=== PATIENT | female | born 1940 | race Caucasian/White ===

== ENCOUNTER → 2017-12-08 | Outpatient (CLI) | payer OTHER ==
[~2017-12-08] MED LIST: ACET325 PO; ACYC800 PO; ALBU90OI61 INH; ALTACE; AMIT25 PO; AMIT50 PO; AMOCLA875 PO; ANORO ELLIPTA1 EACH INH; ASPI325 PO; ASPIRIN; Amlodipine Besyl5 MG PO; CHOL10002 PO; CITA20 PO; CLOP75 PO; Diclofenac Sod2.5 ML; ERYT.5TO BOTHEYES; FLUARIX IM; FLUC150A PO; FURO40 PO; Ferrous Sulfat325 M2 PO; GABA300 PO; HYDACE5 PO; ISOMON30 PO; Isosorbide Mono30 MG PO; LISI5 PO; Lisinopril2.5 MG; METF500 PO; METF850 PO; METO100ER PO; METO25ER PO; METO50 PO; METO50ER; METO50ER PO; NIAC250ER PO; NITR.4SL; NITR.4SL SL; NYST100P TOP; NYSTATIN1 EACH TOP; NYSTRITC TOP; Nystop60 GM TOP; OXYGEN; PANT40 PO; POTA10T PO; PRED1SU BOTHEYES; PREDNISONE PO; Pantoprazole So40 MG PO; Percocet 5-3251 EACH PO; Sulfamethoxazo1 EAC4 PO; TOPROL XL; VITAMIN D PO
[2017-12-09 14:49] LABS: Stool Occult Bld Immuno 1 Negative (NEGATIVE); Stool Occult Bld Immuno 2 Negative (NEGATIVE)
== END ==
LOC: LAB EV 08:00
PROVIDERS: Internal Medicine Gastroenterology
DX: Z80.0 Family history of malignant neoplasm of digestive organs (principal); Z12.11 Encounter for screening for malignant neoplasm of colon
CPT/HCPCS: G0328

== ENCOUNTER 2018-05-14 16:39 | Inpatient (IN) | payer OTHER ==
[~2018-05-14] VITALS: Ht 165.1 cm; Wt 148.8 kg
[~2018-05-14 16:39] MED LIST changes: +CYAN500 PO; +VITAMIN B6 PO
[2018-05-14 17:31] LABS: Hematocrit 38.3 % (33.0-51.0); Hemoglobin 11.9 g/dL (11.5-16.0); Mean Corpuscular HGB 28.9 pg (26.0-34.0); Mean Corpuscular HGB Conc 31.1 g/dL (31.5-36.5); Mean Corpuscular Volume 93 fL (80-100); Platelet Count 239 K/mm3 (150-400); RDW Coefficient Variation 13.9 % (11.7-14.2); RDW Standard Deviation 47.2 fL (35.1-46.3); Red Blood Cell Count 4.12 M/mm3 (3.80-5.20)
[2018-05-14 17:54] LABS: Troponin I 0.058 ng/mL (0.000-0.040)
[2018-05-14 17:59] LABS: Alanine Aminotransfer (ALT/SGP 27 U/L (12-78); Albumin, Blood 3.2 g/dL (3.4-5.0); Albumin/Globulin Ratio 0.7 (0.8-1.8); Alk Phos 103 U/L (50-136); Anion Gap 11 mmol/L (6-16); Aspartate Aminotrans (AST/SGOT 38 U/L (12-37); Bilirubin, Total 0.6 mg/dL (0.1-1.0); Blood Urea Nitrogen 10 mg/dL (8-24); Bun/Creatinine Ratio 13.2 (12.0-20.0); CO2, Blood 24 mmol/L (21-32); Calcium, Blood 8.8 mg/dL (8.5-10.1); Chloride, Blood 101 mmol/L (98-108); Creatinine, Blood 0.76 mg/dL (0.40-1.00); Globulin, Blood 4.5 g/dL (2.2-4.0); Glomerular Filtration Rate >60 (60-); Glucose, Blood 165 mg/dL (70-99); Potassium, Blood 4.4 mmol/L (3.5-5.5); Sodium, Blood 136 mmol/L (136-145); Total Protein, Blood 7.7 g/dL (6.4-8.2)
[2018-05-14 18:02] LABS: Source, Urine Catheter
[2018-05-14 18:11] LABS: Appearance, Urine Clear (Clear); Bilirubin, Urine Neg (Neg); Blood, Urine Neg (Neg); Color, Urine Yellow (P-Yellow); Glucose Qualitative, Urine Neg (Neg); Ketones, Urine 1+ (Neg); Leukocyte Esterase, Urine Neg (Neg); Nitrite, Urine Neg (Neg); Protein, Urine Neg (Neg); Specific Gravity, Urine 1.005 (1.003-1.022); Urobilinogen, Urine NORM (Normal)
[2018-05-14 19:07] LABS: BAND PERCENT MAN 5 % (0-8); BASOPHILS ABSOLUTE MAN 0.14 K/mm3 (0.00-0.23); BASOPHILS PERCENT MAN 1 % (0-2); EOSINOPHILS PERCENT MAN 0 % (0-6); LYMPHOCYTES ABSOLUTE MAN 0.28 K/mm3 (0.84-5.20); LYMPHOCYTES PERCENT MAN 2 % (21-46); MONOCYTES ABSOLUTE MAN 0.42 K/mm3 (0.16-1.47); MONOCYTES PERCENT MAN 3 % (4-13); NEUTROPHILS ABSOLUTE MAN 13.34 K/mm3 (1.96-9.15); SEG NEUTROPHILS PERCENT MAN 89 % (41-73); TOTAL CELLS COUNTED 100
[2018-05-14 23:54] LABS: International Normalized Ratio 1.01; Prothrombin Time Results 10.4 Sec (9.7-11.5)
[2018-05-15 04:00] LABS: Hematocrit 31.4 % (33.0-51.0); Hemoglobin 9.8 g/dL (11.5-16.0); Mean Corpuscular HGB Conc 31.2 g/dL (31.5-36.5); Mean Corpuscular Volume 93 fL (80-100); Mean Platelet Volume 9.7 fL (9.1-12.4); Platelet Count 200 K/mm3 (150-400); RDW Coefficient Variation 14.2 % (11.7-14.2); RDW Standard Deviation 47.8 fL (35.1-46.3); Red Blood Cell Count 3.38 M/mm3 (3.80-5.20); White Blood Cell Count 13.02 K/mm3 (4.00-11.30)
[2018-05-15 04:17] LABS: Anion Gap 9 mmol/L (6-16); Blood Urea Nitrogen 11 mg/dL (8-24); Bun/Creatinine Ratio 16.1 (12.0-20.0); CO2, Blood 26 mmol/L (21-32); Calcium, Blood 7.3 mg/dL (8.5-10.1); Chloride, Blood 104 mmol/L (98-108); Creatinine, Blood 0.68 mg/dL (0.40-1.00); Glomerular Filtration Rate >60 (60-); Glucose, Blood 111 mg/dL (70-99); Potassium, Blood 3.6 mmol/L (3.5-5.5); Sodium, Blood 139 mmol/L (136-145)
[2018-05-16 04:51] LABS: BASOPHILS ABSOLUTE AUTO 0.03 K/mm3 (0.00-0.23); BASOPHILS PERCENT AUTO 0 % (0-2); EOSINOPHILS ABSOLUTE AUTO 0.19 K/mm3 (0.00-0.68); EOSINOPHILS PERCENT AUTO 3 % (0-6); Hematocrit 33.4 % (33.0-51.0); Hemoglobin 10.5 g/dL (11.5-16.0); IMMATURE GRAN ABSOLUTE AUTO 0.03 K/mm3 (0.00-0.10); IMMATURE GRAN PERCENT AUTO 0 % (0-1); LYMPHOCYTES ABSOLUTE AUTO 0.96 K/mm3 (0.84-5.20); LYMPHOCYTES PERCENT AUTO 14 % (21-46); MONOCYTES PERCENT AUTO 7 % (4-13); Mean Corpuscular HGB 29.3 pg (26.0-34.0); Mean Corpuscular HGB Conc 31.4 g/dL (31.5-36.5); Mean Corpuscular Volume 93 fL (80-100); Mean Platelet Volume 9.6 fL (9.1-12.4); NEUTROPHILS PERCENT AUTO 76 % (41-73); Platelet Count 189 K/mm3 (150-400); RDW Coefficient Variation 14.3 % (11.7-14.2); RDW Standard Deviation 48.4 fL (35.1-46.3); Red Blood Cell Count 3.58 M/mm3 (3.80-5.20); White Blood Cell Count 7.11 K/mm3 (4.00-11.30)
[2018-05-17] MEDS ORDERED: Norco 5-325 Ta1 EACH PO (14:54)
[2018-05-17] MEDS ORDERED: ALBU90OI INH (14:55)
[2018-05-17] MEDS ORDERED: LEVFLO500 PO (14:57)
== END 2018-05-17 16:46 | disposition home or self-care (01) | DRG 871 ==
LOC: ER 16:39 → PCU 19:13 → MEDS 21:05 → ENPENDDIS 05-17 11:00 → MEDS 05-17 16:46
PROVIDERS: Emergency Medicine; Internal Medicine; Nurse Practitioner Acute Care
DX: A41.9 Sepsis, unspecified organism (principal); J18.9 Pneumonia, unspecified organism; J96.01 Acute respiratory failure with hypoxia; I50.30 Unspecified diastolic (congestive) heart failure; Z68.44 Body mass index [BMI] 60.0-69.9, adult; R65.20 Severe sepsis without septic shock; I11.0 Hypertensive heart disease with heart failure; E66.01 Morbid (severe) obesity due to excess calories; I25.10 Atherosclerotic heart disease of native coronary artery without angina pectoris; K21.9 Gastro-esophageal reflux disease without esophagitis; G47.33 Obstructive sleep apnea (adult) (pediatric); E78.5 Hyperlipidemia, unspecified; G60.9 Hereditary and idiopathic neuropathy, unspecified; M19.90 Unspecified osteoarthritis, unspecified site; I16.0 Hypertensive urgency; Z74.01 Bed confinement status; Z99.3 Dependence on wheelchair; Z88.6 Allergy status to analgesic agent; Z88.8 Allergy status to other drugs, medicaments and biological substances; Z91.018 Allergy to other foods; Z79.02 Long term (current) use of antithrombotics/antiplatelets; Z79.82 Long term (current) use of aspirin; Z79.899 Other long term (current) drug therapy
CPT/HCPCS: 36415; 51702; 71045; 80048; 80053; 81003; 83605; 83880; 84484; 85025; 85027; 85610; 87449; 93005; 93010; 94644; 94667; 94760; 94761; 96365; 96366; 96367; 96368; 97161; 97166; 97530; 99285-25; G8978; G8979; G8987; G8988; J0696; J1650; J1956; J2405; J2543; J3370; J7030; J7050; J7120

== ENCOUNTER 2020-03-16 14:07 | Emergency (ER) | payer OTHER ==
[~2020-03-16] VITALS: Ht 165.1 cm; Wt 127.0 kg
[~2020-03-16 14:07] MED LIST changes: +ALBU90OI INH; +LEVFLO500 PO; +Norco 5-325 Ta1 EACH PO; +Prednisone20 MG PO
[2020-03-16 14:28] LABS: BASOPHILS ABSOLUTE AUTO 0.04 K/mm3 (0.00-0.23); BASOPHILS PERCENT AUTO 1 % (0-2); EOSINOPHILS ABSOLUTE AUTO 0.27 K/mm3 (0.00-0.68); EOSINOPHILS PERCENT AUTO 6 % (0-6); Hematocrit 38.3 % (33.0-51.0); Hemoglobin 11.1 g/dL (11.5-16.0); IMMATURE GRAN ABSOLUTE AUTO 0.01 K/mm3 (0.00-0.10); IMMATURE GRAN PERCENT AUTO 0 % (0-1); LYMPHOCYTES ABSOLUTE AUTO 0.98 K/mm3 (0.84-5.20); LYMPHOCYTES PERCENT AUTO 21 % (21-46); MONOCYTES ABSOLUTE AUTO 0.44 K/mm3 (0.16-1.47); MONOCYTES PERCENT AUTO 9 % (4-13); Mean Corpuscular HGB 26.1 pg (26.0-34.0); Mean Corpuscular Volume 90 fL (80-100); Mean Platelet Volume 9.7 fL (9.1-12.4); NEUTROPHILS PERCENT AUTO 63 % (41-73); Platelet Count 250 K/mm3 (150-400); RDW Coefficient Variation 15.7 % (11.7-14.2); RDW Standard Deviation 51.8 fL (35.1-46.3); Red Blood Cell Count 4.25 M/mm3 (3.80-5.20); White Blood Cell Count 4.74 K/mm3 (4.00-11.30)
[2020-03-16 15:07] LABS: Chloride, Blood 101 mmol/L (98-108); Potassium, Blood 4.2 mmol/L (3.5-5.5); Sodium, Blood 136 mmol/L (136-145)
[2020-03-16 15:13] LABS: Alanine Aminotransfer (ALT/SGP 19 U/L (12-78); Albumin/Globulin Ratio 0.7 (0.8-1.8); Alk Phos 97 U/L (50-136); Anion Gap 8 mmol/L (6-16); Aspartate Aminotrans (AST/SGOT 20 U/L (12-37); Bilirubin, Total 0.3 mg/dL (0.1-1.0); Blood Urea Nitrogen 9 mg/dL (8-24); Bun/Creatinine Ratio 14.2 (12.0-20.0); CO2, Blood 27 mmol/L (21-32); Calcium, Blood 8.5 mg/dL (8.5-10.1); Creatinine, Blood 0.63 mg/dL (0.40-1.00); Globulin, Blood 4.3 g/dL (2.2-4.0); Glomerular Filtration Rate >60 (60-); Glucose, Blood 103 mg/dL (70-99); Total Protein, Blood 7.3 g/dL (6.4-8.2); Troponin I <0.015 ng/mL (0.000-0.040)
== END 2020-03-16 15:50 | disposition home or self-care (01) ==
LOC: ER 14:07
PROVIDERS: Emergency Medicine
DX: R07.9 Chest pain, unspecified (principal); F32.9 Major depressive disorder, single episode, unspecified; E78.5 Hyperlipidemia, unspecified; Z79.82 Long term (current) use of aspirin; Z79.899 Other long term (current) drug therapy; Z91.018 Allergy to other foods; Z88.8 Allergy status to other drugs, medicaments and biological substances
CPT/HCPCS: 36415; 71045; 80053; 84484; 85025; 93005; 93010; 99284-25

== ENCOUNTER 2020-10-19 13:16 | Emergency (ER) | payer OTHER, SELFPAY ==
[~2020-10-19] VITALS: Ht 162.6 cm; Wt 133.8 kg
[~2020-10-19 13:16] MED LIST changes: +ASPI325EC PO
[2020-10-19 14:55] LABS: BASOPHILS ABSOLUTE AUTO 0.05 K/mm3 (0.00-0.23); BASOPHILS PERCENT AUTO 1 % (0-2); EOSINOPHILS ABSOLUTE AUTO 0.29 K/mm3 (0.00-0.68); EOSINOPHILS PERCENT AUTO 6 % (0-6); Hematocrit 39.5 % (33.0-51.0); Hemoglobin 11.8 g/dL (11.5-16.0); IMMATURE GRAN ABSOLUTE AUTO 0.02 K/mm3 (0.00-0.10); IMMATURE GRAN PERCENT AUTO 0 % (0-1); LYMPHOCYTES ABSOLUTE AUTO 0.88 K/mm3 (0.84-5.20); LYMPHOCYTES PERCENT AUTO 19 % (21-46); MONOCYTES ABSOLUTE AUTO 0.43 K/mm3 (0.16-1.47); MONOCYTES PERCENT AUTO 9 % (4-13); Mean Corpuscular HGB 28.1 pg (26.0-34.0); Mean Corpuscular HGB Conc 29.9 g/dL (31.5-36.5); Mean Corpuscular Volume 94 fL (80-100); Mean Platelet Volume 9.8 fL (9.1-12.4); NEUTROPHILS ABSOLUTE AUTO 3.06 K/mm3 (1.96-9.15); NEUTROPHILS PERCENT AUTO 65 % (41-73); Platelet Count 214 K/mm3 (150-400); RDW Coefficient Variation 15.6 % (11.7-14.2); White Blood Cell Count 4.73 K/mm3 (4.00-11.30)
[2020-10-19 15:08] LABS: Alanine Aminotransfer (ALT/SGP 28 U/L (12-78); Albumin, Blood 2.6 g/dL (3.4-5.0); Albumin/Globulin Ratio 0.6 (0.8-1.8); Alk Phos 105 U/L (50-136); Anion Gap 5 mmol/L (6-16); Aspartate Aminotrans (AST/SGOT 37 U/L (12-37); Bilirubin, Total 0.6 mg/dL (0.1-1.0); Blood Urea Nitrogen 10 mg/dL (8-24); Bun/Creatinine Ratio 15.9 (12.0-20.0); CO2, Blood 28 mmol/L (21-32); Calcium, Blood 8.5 mg/dL (8.5-10.1); Chloride, Blood 103 mmol/L (98-108); Creatinine, Blood 0.63 mg/dL (0.40-1.00); Globulin, Blood 4.2 g/dL (2.2-4.0); Glomerular Filtration Rate >60 (60-); Glucose, Blood 132 mg/dL (70-99); Potassium, Blood 4.3 mmol/L (3.5-5.5); Sodium, Blood 136 mmol/L (136-145); Total Protein, Blood 6.8 g/dL (6.4-8.2); Troponin I <0.015 ng/mL (0.000-0.040)
== END 2020-10-19 17:59 | disposition home or self-care (01) ==
LOC: ER 13:16
PROVIDERS: Physician Assistant
DX: R07.9 Chest pain, unspecified (principal); K46.9 Unspecified abdominal hernia without obstruction or gangrene; E78.5 Hyperlipidemia, unspecified; Z88.8 Allergy status to other drugs, medicaments and biological substances; Z88.6 Allergy status to analgesic agent; Z91.02 Food additives allergy status; Z79.02 Long term (current) use of antithrombotics/antiplatelets; Z79.899 Other long term (current) drug therapy; Z79.82 Long term (current) use of aspirin; Z95.5 Presence of coronary angioplasty implant and graft
CPT/HCPCS: 36415; 71045; 80053; 83880; 84484; 85025; 93005; 93010; 99284-25

== ENCOUNTER 2020-11-30 05:07 | Emergency (ER) | payer OTHER ==
[~2020-11-30] VITALS: Ht 165.1 cm; Wt 122.5 kg
[2020-11-30] MEDS ORDERED: HYDR1TAB94 PO (06:30)
== END 2020-11-30 07:31 | disposition home or self-care (01) ==
LOC: ER 05:07
DX: M17.11 Unilateral primary osteoarthritis, right knee (principal); E66.01 Morbid (severe) obesity due to excess calories; E78.5 Hyperlipidemia, unspecified; I25.10 Atherosclerotic heart disease of native coronary artery without angina pectoris; I10 Essential (primary) hypertension; K21.9 Gastro-esophageal reflux disease without esophagitis; Z68.41 Body mass index [BMI] 40.0-44.9, adult; Z88.6 Allergy status to analgesic agent; Z88.8 Allergy status to other drugs, medicaments and biological substances; Z79.82 Long term (current) use of aspirin; Z79.899 Other long term (current) drug therapy
CPT/HCPCS: 73562-RT; 99283-25; A9270

== ENCOUNTER 2020-12-18 17:31 | Inpatient (IN) | payer OTHER ==
[~2020-12-18] VITALS: Ht 165.1 cm; Wt 113.4 kg
[~2020-12-18 17:31] MED LIST changes: +HYDR1TAB94 PO
[2020-12-18 18:19] LABS: BASOPHILS ABSOLUTE AUTO 0.06 K/mm3 (0.00-0.23); BASOPHILS PERCENT AUTO 1 % (0-2); EOSINOPHILS PERCENT AUTO 2 % (0-6); Hematocrit 38.8 % (33.0-51.0); Hemoglobin 12.1 g/dL (11.5-16.0); IMMATURE GRAN ABSOLUTE AUTO 0.06 K/mm3 (0.00-0.10); IMMATURE GRAN PERCENT AUTO 1 % (0-1); LYMPHOCYTES ABSOLUTE AUTO 0.99 K/mm3 (0.84-5.20); LYMPHOCYTES PERCENT AUTO 10 % (21-46); MONOCYTES ABSOLUTE AUTO 0.61 K/mm3 (0.16-1.47); MONOCYTES PERCENT AUTO 6 % (4-13); Mean Corpuscular HGB 27.9 pg (26.0-34.0); Mean Corpuscular HGB Conc 31.2 g/dL (31.5-36.5); Mean Corpuscular Volume 89 fL (80-100); Mean Platelet Volume 9.7 fL (9.1-12.4); NEUTROPHILS ABSOLUTE AUTO 7.58 K/mm3 (1.96-9.15); NEUTROPHILS PERCENT AUTO 80 % (41-73); Platelet Count 278 K/mm3 (150-400); RDW Coefficient Variation 13.9 % (11.7-14.2); RDW Standard Deviation 45.2 fL (35.1-46.3); Red Blood Cell Count 4.34 M/mm3 (3.80-5.20)
[2020-12-18 18:40] LABS: Alanine Aminotransfer (ALT/SGP 14 U/L (12-78); Albumin, Blood 2.9 g/dL (3.4-5.0); Albumin/Globulin Ratio 0.6 (0.8-1.8); Alk Phos 97 U/L (50-136); Anion Gap 7 mmol/L (6-16); Aspartate Aminotrans (AST/SGOT 17 U/L (12-37); Bilirubin, Total 0.7 mg/dL (0.1-1.0); Blood Urea Nitrogen 9 mg/dL (8-24); Bun/Creatinine Ratio 14.1 (12.0-20.0); CO2, Blood 27 mmol/L (21-32); Calcium, Blood 8.8 mg/dL (8.5-10.1); Chloride, Blood 99 mmol/L (98-108); Creatinine, Blood 0.64 mg/dL (0.40-1.00); Globulin, Blood 4.7 g/dL (2.2-4.0); Glomerular Filtration Rate >60 (60-); Glucose, Blood 151 mg/dL (70-99); Potassium, Blood 3.9 mmol/L (3.5-5.5); Sodium, Blood 133 mmol/L (136-145); Total Protein, Blood 7.6 g/dL (6.4-8.2)
[2020-12-18] MEDS ORDERED: AMIT50 PO (19:51)
[2020-12-18] MEDS ORDERED: SYNTHROID PO (19:52)
--- NOTE | 2020-12-18 22:41 | NUR ---
ADMIT NOTE HANDOFF REPORT RECEIVED FROM ER NURSE KIM. PT TRANSPORTED TO FLOOR VIA GURNEY. PT ORIENTED TO UNIT. CALL BUTTON WITHIN REACH. PERSONAL POSSESSIONS WITH PT.
--- NOTE | 2020-12-19 04:21 | NUR ---
SHIFT SUMMARY ADMITTED FOR FACIAL CELLULITIS (LEFT SIDE) THIS SHIFT. IV ANTIBIOTICS ARE SCHEDULED. SHE HAS MANY CAVITIES WHICH COULD BE THE CAUSATIVE FACTOR. CHEMBG'S ARE ACHS, BUT SHE DENIES BEING DIABETIC. HEPARIN FOR DVT PREVENTION. SHE IS A 1 ASSIST TO [facility] [place]UE TO LEG WEAKNESS, SHE IS IN A WHEELCHAIR AT HOME. HER DAUGHTERS COME 2 DAYS A WEEK TO HELP THE PT AND HER (HE HAS CARDIAC PROBLEMS). PLAN IS FOR EVENTUAL SWITCH TO PO ANTIBIOTICS AND DC HOME
[2020-12-19 05:05] LABS: BASOPHILS ABSOLUTE AUTO 0.04 K/mm3 (0.00-0.23); BASOPHILS PERCENT AUTO 1 % (0-2); EOSINOPHILS ABSOLUTE AUTO 0.23 K/mm3 (0.00-0.68); EOSINOPHILS PERCENT AUTO 3 % (0-6); Hematocrit 34.4 % (33.0-51.0); Hemoglobin 10.6 g/dL (11.5-16.0); IMMATURE GRAN ABSOLUTE AUTO 0.03 K/mm3 (0.00-0.10); IMMATURE GRAN PERCENT AUTO 0 % (0-1); LYMPHOCYTES ABSOLUTE AUTO 0.62 K/mm3 (0.84-5.20); LYMPHOCYTES PERCENT AUTO 9 % (21-46); MONOCYTES PERCENT AUTO 10 % (4-13); Mean Corpuscular HGB Conc 30.8 g/dL (31.5-36.5); Mean Corpuscular Volume 91 fL (80-100); Mean Platelet Volume 9.7 fL (9.1-12.4); NEUTROPHILS ABSOLUTE AUTO 5.13 K/mm3 (1.96-9.15); NEUTROPHILS PERCENT AUTO 76 % (41-73); Platelet Count 214 K/mm3 (150-400); RDW Coefficient Variation 13.9 % (11.7-14.2); RDW Standard Deviation 46.2 fL (35.1-46.3); Red Blood Cell Count 3.78 M/mm3 (3.80-5.20); White Blood Cell Count 6.75 K/mm3 (4.00-11.30)
[2020-12-19 05:20] LABS: Anion Gap 6 mmol/L (6-16); Blood Urea Nitrogen 7 mg/dL (8-24); Bun/Creatinine Ratio 11.5 (12.0-20.0); CO2, Blood 31 mmol/L (21-32); Calcium, Blood 7.7 mg/dL (8.5-10.1); Chloride, Blood 103 mmol/L (98-108); Creatinine, Blood 0.61 mg/dL (0.40-1.00); Glomerular Filtration Rate >60 (60-); Glucose, Blood 135 mg/dL (70-99); Potassium, Blood 3.5 mmol/L (3.5-5.5); Sodium, Blood 140 mmol/L (136-145)
--- NOTE | 2020-12-19 12:54 | NUR ---
Spiritual care visit conducted. Patient tells me about her medical history but then immediately switches topics over to talking about her who has an appointment In [place] today to discuss a valve replacement in his heart. She also shares about her family support system and her [employer] peyton. Patient gets tearful when she speaks of the of her 21 yr old grandson due to cancer. I reinforce patient's helpful attitudes and practices and provide therapeutic listening, grief support and prayer. Patient responds well and shows signs of reduced stress and being comforted. I will continue to remain available to patient and family.
--- NOTE | 2020-12-19 15:46 | NUR ---
Met with pt today, she is pleasant and cooperative, alert and oriented. She currently lives at home with her and her daughter lives in a separate apartment above their home to help take care of the pt. Pt reports her pain is 5/10 currently, and she would like her pain at a 3/10 or lower if possible. She states she has been having an increase in pain since she developed cellulitis, but thinks it's slowly improving over time, and with approprate treatment. Pt is a full code, and I would like to disuss this, but will wait until tomorrow, as pt visit seems to have tired her out for now.
--- NOTE | 2020-12-19 19:50 | NUR ---
SHIFT SUMMARY- PT ALERT AND ORIENTED 2P ASSIST TO THE BSC WITH FWW AND GAIT BELT. PT HAS SEVERE EXCORIATIONS ON HER BOTTOM IN THE GLUTEAL FOLDS. DR MISHRA. VERBAL ORDER RECIEVED FOR NYSTATIN POWDER. ORDER PLACED IN ORDER MANAGEMENT PASSED ON TO NIGHT RN IN BEDSIDE REPORT. PT STARTED ON IV TORADOL TODAY, SHE HAS A Hx OF ALLERGY TO ALEVE BUT IS ABLE TO TAKE MOTRIN. MEDICATION GIVEN IV PB IN AMIE OF PUSH FOR SAFETY. PT STATED SHE FELT A LITTLE LOOPY BUT NO OTHER SYMPTOMS WERE NOTED AT THE TIME OF MEDICINE ADMINISTRATION. PASSED ON TO NIGHT RN IN BEDSIDE REPORT. PT CURRENTLY IN BED CALL LIGHT IN REACH NO S&S OF DISTRESS.
--- NOTE | 2020-12-20 05:27 | NUR ---
SHIFT SUMMARY ADMITTED FOR ABSCESS TO THE LEFT CHIN. PT IS A FULL CODE. PLAN IS POSSIBLE CHANGE TO ORAL ABX AND DISCHARGE. 1 ASSIST TO BSC WITH GAITBELT AND FWW. MEDICATED FOR PAIN TWICE WITH TORADOL WITH NO IMPROVEMENT. IV ABX ARE SCHEDULED. NO NEW CONCERNS THIS SHIFT.
--- NOTE | 2020-12-20 05:55 | NUR ---
COMMERCIAL SALES DIRECTOR/CTA I HAVE ROUNDED WITH THIS STUDENT. I HAVE PERSONALLY ASSESSED THIS PT AND I HAVE READ THIS STUDENT'S CHARTING. I AGREE WITH HER ASSESSMENT
[2020-12-20 06:25] LABS: Hematocrit 34.3 % (33.0-51.0); Hemoglobin 10.4 g/dL (11.5-16.0); Mean Corpuscular HGB 27.9 pg (26.0-34.0); Mean Corpuscular HGB Conc 30.3 g/dL (31.5-36.5); Mean Corpuscular Volume 92 fL (80-100); Mean Platelet Volume 9.2 fL (9.1-12.4); Platelet Count 213 K/mm3 (150-400); RDW Coefficient Variation 14.1 % (11.7-14.2); RDW Standard Deviation 47.5 fL (35.1-46.3); Red Blood Cell Count 3.73 M/mm3 (3.80-5.20); White Blood Cell Count 4.92 K/mm3 (4.00-11.30)
[2020-12-20 06:43] LABS: Alanine Aminotransfer (ALT/SGP 12 U/L (12-78); Albumin, Blood 2.2 g/dL (3.4-5.0); Albumin/Globulin Ratio 0.5 (0.8-1.8); Alk Phos 79 U/L (50-136); Anion Gap 6 mmol/L (6-16); Aspartate Aminotrans (AST/SGOT 12 U/L (12-37); Bilirubin, Total 0.5 mg/dL (0.1-1.0); Blood Urea Nitrogen 8 mg/dL (8-24); Bun/Creatinine Ratio 11.1 (12.0-20.0); CO2, Blood 29 mmol/L (21-32); Calcium, Blood 7.8 mg/dL (8.5-10.1); Chloride, Blood 101 mmol/L (98-108); Creatinine, Blood 0.72 mg/dL (0.40-1.00); Globulin, Blood 4.1 g/dL (2.2-4.0); Glomerular Filtration Rate >60 (60-); Glucose, Blood 123 mg/dL (70-99); Potassium, Blood 3.6 mmol/L (3.5-5.5); Sodium, Blood 136 mmol/L (136-145); Total Protein, Blood 6.3 g/dL (6.4-8.2)
--- NOTE | 2020-12-20 07:34 | NUR ---
ASSUMED CARE OF PT- BEDSIDE REPORT COMPLETED WITH NIGHT RN. PT LEFT LOWER JAW ABCESS SWELLING IS VISIBLY REDUCED FROM YESTERDAY, REDENED AREA IS SMALLER IN APPEARANCE, ABCESS RUPTURED AND IS DRAINING A SMALL AMOUNT OF MILKY DISCHARGE WITH SEROSANGUINOUS FLUID. PT STATES THERE IS NO PAIN AT THE SITE THERE IS SOME OCCASSIONAL TINGLING.
[2020-12-20] MEDS ORDERED: AMOCLA875 PO (11:38)
[2020-12-20] MEDS ORDERED: IBUP600 PO (11:38)
--- NOTE | 2020-12-20 14:21 | NUR ---
discharge note- pt was given verbal and written discharge instructions and acknowledged understanding of them. meds faxed to her pharmacy. pt discharged to home. escorted out via wc by the monitoring specialist. iv dc'd prior to discharge. no s&s of distress noted at the time of discharge.
== END 2020-12-20 16:46 | disposition home or self-care (01) | DRG 603 ==
LOC: ER 17:31 → ICUW 17:32 → MEDS 19:25
PROVIDERS: Internal Medicine; Nurse Practitioner Acute Care; Physician Assistant; ADMIT Internal Medicine
DX: L03.211 Cellulitis of face (principal); Z68.41 Body mass index [BMI] 40.0-44.9, adult; K02.9 Dental caries, unspecified; E66.9 Obesity, unspecified; M19.90 Unspecified osteoarthritis, unspecified site; G47.30 Sleep apnea, unspecified; I25.10 Atherosclerotic heart disease of native coronary artery without angina pectoris; E78.5 Hyperlipidemia, unspecified; F32.9 Major depressive disorder, single episode, unspecified; G62.9 Polyneuropathy, unspecified; I10 Essential (primary) hypertension; K21.9 Gastro-esophageal reflux disease without esophagitis; I73.9 Peripheral vascular disease, unspecified; Z95.5 Presence of coronary angioplasty implant and graft; Z88.8 Allergy status to other drugs, medicaments and biological substances; Z79.899 Other long term (current) drug therapy; Z79.82 Long term (current) use of aspirin; Z79.891 Long term (current) use of opiate analgesic
CPT/HCPCS: 36415; 70487; 80048; 80053; 82947; 83605; 85025; 85027; 96365-59; 96366; 96367; 96372; 96375; 99285-25; A9270; A9270-GY; G0378; J0295; J1644; J1650; J1885; J3370; J7030; J7050; Q9967

== ENCOUNTER 2022-04-06 22:58 | Emergency (ER) | payer OTHER ==
[~2022-04-06 22:58] MED LIST changes: +IBUP600 PO; +SYNTHROID PO
== END 2022-04-07 02:30 | disposition home or self-care (01) ==
LOC: ER 22:58
DX: U07.1 COVID-19 (principal); Z88.8 Allergy status to other drugs, medicaments and biological substances; Z91.018 Allergy to other foods; Z79.899 Other long term (current) drug therapy; Z79.82 Long term (current) use of aspirin
CPT/HCPCS: 93005; 93010; 99284-25

== ENCOUNTER 2022-10-29 13:52 | Inpatient (IN) | payer OTHER ==
[~2022-10-29] VITALS: Ht 165.1 cm; Wt 118.4 kg
[~2022-10-29 13:52] MED LIST changes: +CEPH500 PO; +SULTRIDS PO; -SYNTHROID PO; +TRAM50 PO
[2022-10-29 14:14] LABS: BASOPHILS ABSOLUTE AUTO 0.04 K/mm3 (0.00-0.23); BASOPHILS PERCENT AUTO 0 % (0-2); EOSINOPHILS ABSOLUTE AUTO 0.01 K/mm3 (0.00-0.68); EOSINOPHILS PERCENT AUTO 0 % (0-6); Hematocrit 37.1 % (33.0-51.0); Hemoglobin 12.1 g/dL (11.5-16.0); IMMATURE GRAN ABSOLUTE AUTO 0.07 K/mm3 (0.00-0.10); IMMATURE GRAN PERCENT AUTO 1 % (0-1); LYMPHOCYTES ABSOLUTE AUTO 0.58 K/mm3 (0.84-5.20); LYMPHOCYTES PERCENT AUTO 6 % (21-46); MONOCYTES ABSOLUTE AUTO 0.54 K/mm3 (0.16-1.47); MONOCYTES PERCENT AUTO 5 % (4-13); Mean Corpuscular HGB 29.4 pg (26.0-34.0); Mean Corpuscular HGB Conc 32.6 g/dL (31.5-36.5); Mean Corpuscular Volume 90 fL (80-100); Mean Platelet Volume 9.4 fL (9.1-12.4); NEUTROPHILS ABSOLUTE AUTO 9.36 K/mm3 (1.96-9.15); NEUTROPHILS PERCENT AUTO 88 % (41-73); Platelet Count 230 K/mm3 (150-400); RDW Coefficient Variation 13.7 % (11.7-14.2); RDW Standard Deviation 45.5 fL (35.1-46.3); Red Blood Cell Count 4.11 M/mm3 (3.80-5.20)
[2022-10-29] MEDS ORDERED: NEURONTIN300 MG PO (14:36)
[2022-10-29] MEDS ORDERED: SULFAMETHOXAZO1 EAC1 PO (14:36)
[2022-10-29] MEDS ORDERED: TRAM50 PO (14:36)
[2022-10-29] MEDS ORDERED: CEPH500 PO (14:36)
[2022-10-29 14:37] LABS: Albumin, Blood 2.8 g/dL (3.4-5.0); Albumin/Globulin Ratio 0.6 (0.8-1.8); Bilirubin, Total 0.6 mg/dL (0.1-1.0); Bun/Creatinine Ratio 24.9 (12.0-20.0); Calcium, Blood 8.9 mg/dL (8.5-10.1); Creatinine, Blood 0.96 mg/dL (0.40-1.00); Globulin, Blood 4.6 g/dL (2.2-4.0); Potassium, Blood 5.4 mmol/L (3.5-5.5); Total Protein, Blood 7.4 g/dL (6.4-8.2)
[2022-10-29] MEDS ORDERED: METOPROLOL TART5010 PO (14:37)
[2022-10-29] MEDS ORDERED: EUTHYROX25 MC1 PO (14:39)
[2022-10-29] MEDS ORDERED: LISINOPRIL2.5 MG PO (14:39)
[2022-10-29] MEDS ORDERED: PANTOPRAZOLE SO40 M2 PO (14:39)
[2022-10-29] MEDS ORDERED: Aspir 8181 MG PO (14:40)
[2022-10-29] MEDS ORDERED: FURO20 PO (14:40)
[2022-10-29 15:02] LABS: Influenza A, PCR NEGATIVE (NEGATIVE); Influenza B, PCR NEGATIVE (NEGATIVE); Resp Syncytial Virus, PCR NEGATIVE (NEGATIVE); SARS-Cov-2 (COVID-19) PCR, MMC NEGATIVE (NEGATIVE)
[2022-10-29 17:28] LABS: Source, Urine Straight Cath
[2022-10-29 17:36] LABS: Appearance, Urine Clear (Clear); Bilirubin, Urine Neg (Neg); Blood, Urine Neg (Neg); Color, Urine Yellow (P-Yellow); Glucose Qualitative, Urine Neg (Neg); Ketones, Urine Neg (Neg); Leukocyte Esterase, Urine Neg (Neg); Nitrite, Urine Neg (Neg); Protein, Urine 1+ (Neg); Urobilinogen, Urine NORM (Normal)
[2022-10-29 17:52] LABS: U Amphetamine Screen Not Detected; U Barbituate Screen Not Detected; U Benzodiazapine Screen Not Detected; U Buprenorphine Screen Not Detected; U Cannabinoids Screen Not Detected; U Cocaine Screen Not Detected; U Methadone Screen Not Detected; U Methamphetamine Screen Not Detected; U Opiates Screen DETECTED; U Oxycodone Screen Not Detected; U Phencyclidine Screen Not Detected; U Propoxyphene Screen Not Detected
[2022-10-29 18:14] LABS: CPK Creatine Kinase 125 U/L (26-193)
[2022-10-29 18:52] LABS: Anti-Xa UFH, PHA Monitoring <0.10 IU/mL; International Normalized Ratio 1.14; Prothrombin Time Results 11.9 Sec (9.7-11.5)
[2022-10-29] MEDS ORDERED: MICONAZOLE NITR85 GM TOP (20:55)
--- NOTE | 2022-10-29 21:00 | NUR ---
ARRIVAL TO PCU8 PT ARRIVED TO U8 AT APPROXIMATELY 2039. PT SLID OVER FROM ER [facility] TO HOSPITAL BED BY 4 CLINICAL STAFF MEMBERS. PT A&Ox4, COMMUNICATES NEEDS APPROPRIATELY. SpO2> 92% RA, DENIES SOB. BP STABLE, SINUS 80's, DENIES CP/PRESSURE. BED BATH GIVEN, PICTURES OF WOUNDS/SKIN MARKINGS IN TAKEN. PT ANSWERED ADMISSION QUESTIONS APPROPRIATELY. ORIENTED PT TO CALL LIGHT/UNIT. BED IN LOWEST POSITION. HEPARIN gtt STARTED AT 15units/hr PER EMAR.
[2022-10-30 01:33] LABS: BASOPHILS ABSOLUTE AUTO 0.02 K/mm3 (0.00-0.23); BASOPHILS PERCENT AUTO 0 % (0-2); EOSINOPHILS ABSOLUTE AUTO 0.14 K/mm3 (0.00-0.68); EOSINOPHILS PERCENT AUTO 2 % (0-6); Hematocrit 33.1 % (33.0-51.0); Hemoglobin 10.9 g/dL (11.5-16.0); IMMATURE GRAN ABSOLUTE AUTO 0.04 K/mm3 (0.00-0.10); IMMATURE GRAN PERCENT AUTO 0 % (0-1); LYMPHOCYTES PERCENT AUTO 7 % (21-46); MONOCYTES ABSOLUTE AUTO 0.55 K/mm3 (0.16-1.47); MONOCYTES PERCENT AUTO 6 % (4-13); Mean Corpuscular HGB 29.5 pg (26.0-34.0); Mean Corpuscular HGB Conc 32.9 g/dL (31.5-36.5); Mean Corpuscular Volume 90 fL (80-100); Mean Platelet Volume 9.4 fL (9.1-12.4); NEUTROPHILS ABSOLUTE AUTO 7.93 K/mm3 (1.96-9.15); NEUTROPHILS PERCENT AUTO 86 % (41-73); Platelet Count 187 K/mm3 (150-400); RDW Coefficient Variation 13.7 % (11.7-14.2); RDW Standard Deviation 45.1 fL (35.1-46.3); Red Blood Cell Count 3.69 M/mm3 (3.80-5.20); White Blood Cell Count 9.28 K/mm3 (4.00-11.30)
[2022-10-30 02:50] LABS: Albumin, Blood 2.4 g/dL (3.4-5.0); Albumin/Globulin Ratio 0.6 (0.8-1.8); Bilirubin, Total 0.4 mg/dL (0.1-1.0); Bun/Creatinine Ratio 24.1 (12.0-20.0); Calcium, Blood 8.5 mg/dL (8.5-10.1); Creatinine, Blood 0.83 mg/dL (0.40-1.00); Total Protein, Blood 6.4 g/dL (6.4-8.2)
--- NOTE | 2022-10-30 05:11 | NUR ---
SHIFT SUMMARY SEE PREVIOUS NOTES. NO ACUTE CHANGES, PT A&Ox4, VSS, DENIES CP/PRESSURE AND SOB. PT CONTIENT OF URINE, PT REQUESTED PUREWICK, PUREWICK IN PLACE. PT DENIES PAIN. HEPARIN gtt AT 15. NPO SINCE ARRIVAL. WILL REPORT TO ONCOMING RN
--- NOTE | 2022-10-30 14:00 | NUR ---
Echocardiogram completed.
--- NOTE | 2022-10-30 16:21 | NUR ---
Patient is lying in bed and alert. She talks at length about her medical problems, her spouse Mukul's medical problems and about her concerns moving forward. She then tell me the stories of how her and Mukul met, the kids being born and the ups and downs of their lives. She explains about her [employer] peyton and that she leans on God for strength in challenging times. I provide therapeutic listening and prayer. Patient reponds well and shows signs of being encouraged in her peyton and an increase in peace regarding her medical condition. I will continue to remain available to patient and family.
--- NOTE | 2022-10-30 18:00 | NUR ---
SHIFT SUMMARY PT A&OX4, PLEASANT. SP02>90% ON RA. TELEMETRY SHOWS NSR, HR MOSTLY 60'S-90'S. PT DENIES CP. C/O OF LEG/FOOT PAIN. MEDICATED W/ GABAPENTIN PER EMAR. PURWIK TO SUCTION, YELLOW CLEAR URINE. ATTENDS CHANGED X3, FULL LINEN CHANGE. NO BM THIS SHIFT. CHASSIS INSPECTOR IN ROOM FOR ECHO THIS AM. PT IN ROOM TO EVALUATE, STATED PT IS A LIFT PT AND RECOMMENDS HOME HEALTH/PT. HEPARIN GTT TURNED OFF AND CHANGED TO [place], SEE EMAR. CALL LIGHT IN REACH.
--- NOTE | 2022-10-31 01:15 | NUR ---
SHIFT SUMMARY PT A&Ox4, COMMUNICATES NEEDS APPROPRIATELY. SpO2> 92% RA, DENIES SOB. BP STABLE, SINUS 50's WHILE ASLEEP, 60-80's WHILE AWAKE, DENIES CP/PRESSURE. CONTIENT OF URINE, PT REQUESTED PUREWICK, PUREWICK IN PLACE. PT RESTING COMFORTABLY, NO OTHER EVENTS. REPORT GIVEN TO CHARITO SALAS.
[2022-10-31 03:55] LABS: Hematocrit 35.1 % (33.0-51.0); Hemoglobin 11.3 g/dL (11.5-16.0); Mean Corpuscular HGB Conc 32.2 g/dL (31.5-36.5); Mean Corpuscular Volume 90 fL (80-100); Platelet Count 190 K/mm3 (150-400); RDW Coefficient Variation 13.8 % (11.7-14.2); RDW Standard Deviation 45.1 fL (35.1-46.3); Red Blood Cell Count 3.89 M/mm3 (3.80-5.20); White Blood Cell Count 6.73 K/mm3 (4.00-11.30)
[2022-10-31 04:19] LABS: Bun/Creatinine Ratio 29.7 (12.0-20.0); Calcium, Blood 8.5 mg/dL (8.5-10.1); Creatinine, Blood 0.61 mg/dL (0.40-1.00); Potassium, Blood 4.4 mmol/L (3.5-5.5)
--- NOTE | 2022-10-31 05:49 | NUR ---
SHIFT SUMMARY PATIENT ALERT AND ORIENTED X4. HAD NO COMPLAINTS OF PAIN OR SHORTNESS OF BREATH. SHE IS PLEASANT AND COOPERATIVE WITH CARE, STAYED IN BEMD ALL NIGHT. VITAL SIGNS STABLE. PUREWICK STILL IN PLACE. NO ACUTE ISSUES NOTED SINCE TAKING OVER THIS PATIENT'S CARE. WILL CONTINUE TO MONITOR. CALL LIGHT WITHIN REACH.
--- NOTE | 2022-10-31 15:48 | NUR ---
TRANSFER NOTE PT TRANSFERRED FROM [facility] AT 1250, REPORT RECEIVED FROM CHARITO BUENO. DAUGHTERS WERE AT THE BS. CALL LIGHT WITHIN REACH AND BED IN THE LOWEST POSITION.
--- NOTE | 2022-10-31 16:07 | NUR ---
SHIFT SUMMARY PT AOX4, ARRIVED A TRANSFER FROM PCU THIS SHIFT. NO ACUTE CHANGES, PT HAS BEEN RESTING COMFORTABLY. SHE IS WHEELCHAIR BOUND, BASELINE A STAND PIVOT TO THE COMMODE. SHE DID C/O A FRANCISCO AND WAS MEDICATED PER THE EMAR. PLAN IS FOR HER TO POTENTIALLY DISCHARGE TOMORROW. WILL REPORT TO ONCOMING NURSE.
[2022-10-31] MEDS ORDERED: SILVADENE20 G8 TOP (18:17)
[2022-10-31] MEDS ORDERED: AMIT75 PO (18:18)
[2022-10-31] MEDS ORDERED: LEVSOD25 PO (18:19)
--- NOTE | 2022-10-31 18:52 | NUR ---
NOTE SPOKE WITH DR. SILVA ABOUT NEW ORDER FOR METORPOLOL, I WAS CONCERNED REGARDING HER RECENT BP'S AND PULSE TRENDS. SHE STATED TO GIVE THE MEDICATION TO MONITOR HER REACTION TO THEM MEDICATION SINCE IT IS A HOME MED. WILL ADVISE TO GIVE THE MEDICATION.
--- NOTE | 2022-11-01 04:37 | NUR ---
SHIFT SUMMARY PATIENT HAD NO ACUTE CHANGES. AXOX 4 AND STAND PIVOT TO BSC. PIV REMAINS INTACT. IV ABX INFUSED. REPORTED LEG PAIN X ONE AND TYLENOL 650 MG GIVEN PER EMAR. DENIES CHEST PAIN, SOB, AND N/V,. VSS/AFEBRILE. COOPERATIVE OF CARE. CALL LIGHT IN REACH. BED IN LOWEST POSITION. WILL CONTINUE TO MONITOR UNTIL DAY SHIFT NURSE ASSUMES CARE.
[2022-11-01] MEDS ORDERED: PRED20 PO (11:48)
[2022-11-01] MEDS ORDERED: DOXY100 PO (11:48)
--- NOTE | 2022-11-01 15:16 | NUR ---
No acute changes to patient status, ready for discharge today. MD ordered COMPLIANCE LEAD eval before discharge. COMPLIANCE LEAD evaluated patient and ordered mechanical soft diet, thin liquids, no straws, pills whole with applesauce. Discussed COMPLIANCE LEAD eval with family, reviewed discharge education. Patient/family verbalized understanding. VSS. Patient left hospital at 1255.
== END 2022-11-01 13:13 | disposition home health service (06) | DRG 280 ==
LOC: ER 13:52 → PCU 13:53 → MEDS 10-30 14:45 → PCU 10-30 14:45 → MEDS 10-31 12:43
PROVIDERS: Emergency Medicine; Internal Medicine; Pharmacist; ADMIT Internal Medicine
DX: I21.4 Non-ST elevation (NSTEMI) myocardial infarction (principal); J18.9 Pneumonia, unspecified organism; Z68.41 Body mass index [BMI] 40.0-44.9, adult; L03.115 Cellulitis of right lower limb; I25.10 Atherosclerotic heart disease of native coronary artery without angina pectoris; E03.9 Hypothyroidism, unspecified; M62.3 Immobility syndrome (paraplegic); G47.33 Obstructive sleep apnea (adult) (pediatric); Z51.5 Encounter for palliative care; R13.10 Dysphagia, unspecified; I10 Essential (primary) hypertension; M65.842 Other synovitis and tenosynovitis, left hand; E11.42 Type 2 diabetes mellitus with diabetic polyneuropathy; M19.90 Unspecified osteoarthritis, unspecified site; E78.5 Hyperlipidemia, unspecified; F32.A Depression, unspecified; K21.9 Gastro-esophageal reflux disease without esophagitis; M25.511 Pain in right shoulder; M25.512 Pain in left shoulder; D64.9 Anemia, unspecified; G89.29 Other chronic pain; E66.01 Morbid (severe) obesity due to excess calories; M79.606 Pain in leg, unspecified; Z20.822 Contact with and (suspected) exposure to COVID-19; Z90.49 Acquired absence of other specified parts of digestive tract; Z95.5 Presence of coronary angioplasty implant and graft; Z88.8 Allergy status to other drugs, medicaments and biological substances; Z79.899 Other long term (current) drug therapy; Z99.3 Dependence on wheelchair; Z79.82 Long term (current) use of aspirin; Z79.891 Long term (current) use of opiate analgesic; Z79.2 Long term (current) use of antibiotics; Z98.890 Other specified postprocedural states; I25.2 Old myocardial infarction; Z86.14 Personal history of Methicillin resistant Staphylococcus aureus infection; Z79.01 Long term (current) use of anticoagulants; Z79.811 Long term (current) use of aromatase inhibitors
CPT/HCPCS: 0241U; 36415; 70450; 71260; 80048; 80053; 82550; 84145; 84484; 85025; 85027; 85379; 85520; 85610; 85730; 92610; 93005; 93010; 93306; 96365; 96372; 96374; 96375; 96376; 97110; 97162; 97530; 99285-25; A9270; G0378; J0456; J0690; J0696; J1644; J1650; J7050; J7512; Q9967

== ENCOUNTER → 2023-04-08 | Outpatient (CLI) | payer OTHER ==
[~2023-04-08] MED LIST changes: +AMIT75 PO; +Aspir 8181 MG PO; +DOXY100 PO; +EUTHYROX25 MC1 PO; +FURO20 PO; +LEVSOD25 PO; +LISINOPRIL2.5 MG PO; +METOPROLOL TART5010 PO; +MICONAZOLE NITR85 GM TOP; +NEURONTIN300 MG PO; +PANTOPRAZOLE SO40 M2 PO; +PRED20 PO; +SILVADENE20 G8 TOP; +SULFAMETHOXAZO1 EAC1 PO
[2023-04-08 17:46] LABS: BASOPHILS ABSOLUTE AUTO 0.06 K/mm3 (0.00-0.23); BASOPHILS PERCENT AUTO 1 % (0-2); EOSINOPHILS ABSOLUTE AUTO 0.22 K/mm3 (0.00-0.68); EOSINOPHILS PERCENT AUTO 5 % (0-6); Hematocrit 37.2 % (33.0-51.0); Hemoglobin 11.7 g/dL (11.5-16.0); IMMATURE GRAN ABSOLUTE AUTO 0.01 K/mm3 (0.00-0.10); IMMATURE GRAN PERCENT AUTO 0 % (0-1); LYMPHOCYTES ABSOLUTE AUTO 0.86 K/mm3 (0.84-5.20); LYMPHOCYTES PERCENT AUTO 19 % (21-46); MONOCYTES ABSOLUTE AUTO 0.42 K/mm3 (0.16-1.47); MONOCYTES PERCENT AUTO 9 % (4-13); Mean Corpuscular HGB 28.2 pg (26.0-34.0); Mean Corpuscular HGB Conc 31.5 g/dL (31.5-36.5); Mean Corpuscular Volume 90 fL (80-100); Mean Platelet Volume 10.1 fL (9.1-12.4); NEUTROPHILS ABSOLUTE AUTO 3.05 K/mm3 (1.96-9.15); NEUTROPHILS PERCENT AUTO 66 % (41-73); Platelet Count 241 K/mm3 (150-400); RDW Coefficient Variation 14.4 % (11.7-14.2); RDW Standard Deviation 46.5 fL (35.1-46.3); Red Blood Cell Count 4.15 M/mm3 (3.80-5.20); White Blood Cell Count 4.62 K/mm3 (4.00-11.30)
[2023-04-08 19:03] LABS: Free Thyroxine 1.06 ng/dL (0.70-1.60)
[2023-04-08 19:06] LABS: Albumin/Globulin Ratio 0.8 (0.8-1.8); Bilirubin, Total 0.2 mg/dL (0.1-1.0); Bun/Creatinine Ratio 20.5 (12.0-20.0); Calcium, Blood 8.3 mg/dL (8.5-10.1); Creatinine, Blood 0.63 mg/dL (0.40-1.00); Globulin, Blood 3.8 g/dL (2.2-4.0); Potassium, Blood 4.2 mmol/L (3.5-5.5); Thyroid Stimulating Hormone 2.56 uIU/mL (0.360-4.800); Total Protein, Blood 6.8 g/dL (6.4-8.2)
== END | disposition home or self-care (01) ==
LOC: LAB 11:43 → LAB SHORT 11:43
PROVIDERS: Nurse Practitioner Family
DX: E03.9 Hypothyroidism, unspecified (principal); R73.03 Prediabetes
CPT/HCPCS: 80053; 83036; 84439; 84443; 85025

== ENCOUNTER → 2024-03-24 | Outpatient (CLI) | payer OTHER ==
[2024-03-24 17:23] LABS: BASOPHILS ABSOLUTE AUTO 0.03 K/mm3 (0.00-0.23); BASOPHILS PERCENT AUTO 0 % (0-2); EOSINOPHILS ABSOLUTE AUTO 0.28 K/mm3 (0.00-0.68); EOSINOPHILS PERCENT AUTO 4 % (0-6); Hematocrit 39.3 % (33.0-51.0); Hemoglobin 12.1 g/dL (11.5-16.0); IMMATURE GRAN ABSOLUTE AUTO 0.02 K/mm3 (0.00-0.10); IMMATURE GRAN PERCENT AUTO 0 % (0-1); LYMPHOCYTES ABSOLUTE AUTO 0.64 K/mm3 (0.84-5.20); LYMPHOCYTES PERCENT AUTO 9 % (21-46); MONOCYTES ABSOLUTE AUTO 0.47 K/mm3 (0.16-1.47); MONOCYTES PERCENT AUTO 7 % (4-13); Mean Corpuscular HGB 28.1 pg (26.0-34.0); Mean Corpuscular HGB Conc 30.8 g/dL (31.5-36.5); Mean Corpuscular Volume 91 fL (80-100); Mean Platelet Volume 10.4 fL (9.1-12.4); NEUTROPHILS PERCENT AUTO 80 % (41-73); Platelet Count 269 K/mm3 (150-400); RDW Coefficient Variation 14.2 % (11.7-14.2); RDW Standard Deviation 48.1 fL (35.1-46.3); White Blood Cell Count 7.14 K/mm3 (4.00-11.30)
[2024-03-24 18:06] LABS: Free Thyroxine 0.98 ng/dL (0.70-1.60)
[2024-03-24 18:12] LABS: Albumin, Blood 2.9 g/dL (3.4-5.0); Albumin/Globulin Ratio 0.7 (0.8-1.8); Bilirubin, Total 0.2 mg/dL (0.1-1.0); Bun/Creatinine Ratio 17.8 (12.0-20.0); Calcium, Blood 8.7 mg/dL (8.5-10.1); Creatinine, Blood 0.73 mg/dL (0.40-1.00); Globulin, Blood 4.4 g/dL (2.2-4.0); Thyroid Stimulating Hormone 2.57 uIU/mL (0.360-4.800); Total Protein, Blood 7.3 g/dL (6.4-8.2)
== END ==
LOC: LAB 16:18 → LAB SHORT 16:18
PROVIDERS: Nurse Practitioner Family
DX: E03.9 Hypothyroidism, unspecified (principal)
CPT/HCPCS: 80053; 84439; 84443; 85025

== ENCOUNTER → 2024-09-13 | Outpatient (CLI) | payer OTHER ==
[2024-09-13 19:13] LABS: Appearance, Urine Hazy (Clear); Bilirubin, Urine Neg (Neg); Blood, Urine 4+ (Neg); Color, Urine Yellow (P-Yellow); Glucose Qualitative, Urine Neg (Neg); Ketones, Urine Neg (Neg); Leukocyte Esterase, Urine 3+ (Neg); Nitrite, Urine Neg (Neg); Protein, Urine 1+ (Neg); Urobilinogen, Urine NORM (Normal)
[2024-09-13 19:27] LABS: Bacteria Mod /hpf; Squamous Epithelial Cells Few /hpf (Few); White Blood Cells, Urine 25-50 /hpf (0-5)
== END ==
LOC: LAB 19:05 → LAB SHORT 19:05
PROVIDERS: Nurse Practitioner Family
DX: N39.0 Urinary tract infection, site not specified (principal)
CPT/HCPCS: 81001